=== PATIENT | female | born 1960 ===

== ENCOUNTER 2018-06-23 09:34 | Emergency (ER) | payer BC ==
[2018-06-23 09:44] VITALS: BP 118/84
[2018-06-23] MEDS ORDERED: DECADRON IM ONE (10:50)
--- NOTE | 2018-06-23 10:50 | Emergency Department Report ---
Minor Respiratory - HPI Chief Complaint: Earache Stated Complaint: PAIN LFT EAR/ HEAD PAIN Time Seen by Provider: 06/23/18 10:48 Duration: 5 Days Pain Location: Facial, Throat, Nose, Ear Severity: mild Minor Respiratory: Yes Sore Throat, Yes Able to Tolerate Fluids, Yes Ear Pain, No Rhinorrhea, No Cough, No Sick Contacts, No Hemoptysis, No Chest Pain, No Shortness of Breath, No Fever Other History: Patient is a 57-year-old female who comes to the ER complaining of ear pain, sore throat especially at night, and headache. Especially involving the left side of her face. Patient is nontoxic and ambulatory. she does not have a primary care doctor so she is tolerated this for some time but today the pain is so severe in the left ear she's come to the ER ED Review of Systems ROS: Stated complaint: PAIN LFT EAR/ HEAD PAIN Other details as noted in HPI Comment: All other systems reviewed and negative Constitutional: see HPI. denies: chills, fever Eyes: as per HPI, eye pain (behind l eye) ENT: as per HPI, ear pain (b), throat pain Respiratory: see HPI, cough (worse lying down) Cardiovascular: denies: chest pain Endocrine: denies: flushing Gastrointestinal: denies: nausea Genitourinary: denies: dysuria Musculoskeletal: denies: back pain Skin: denies: lesions Neurological: denies: weakness Psychiatric: denies: depression Hematological/Lymphatic: denies: easy bleeding ED Past Medical Hx - Past Medical History Previous Medical History?: No - Surgical History Past Surgical History?: Yes Additional Surgical History: cervical spine sx. bilateral rotator cuff repair. hysterectomy - Social History Smoking Status: Never Smoker Substance Use Type: None - Medications Home Medications: Home Medications Medication Instructions Recorded Confirmed Last Taken Type Amoxicillin 500 mg PO BID #20 capsule 06/23/18 Unknown Rx Fluticasone [Flonase] 1 spray NS QDAY #1 bottle 06/23/18 Unknown Rx predniSONE [Deltasone] 20 mg PO DAILY #5 tablet 06/23/18 Unknown Rx Minor Respiratory Exam - Exam General: Vital signs noted. No distress. Alert and acting appropriately. HEENT: Yes Pharyngeal Erythema, Yes Moist Mucous Membranes, Yes Frontal Tenderness, Yes Maxillary Tenderness, No Pharyngeal Exudates, No Rhinorrhea, No Conjuctival Injection Ear: Both TM Erythema, Both EAC Pain, Neither TM Bulge, Neither EAC Discharge Neck: Yes Supple, No Adenopathy Lungs: Yes Good Air Exchange, No Wheezes, No Ronchi, No Stridor, No Cough, No Labored Respirations, No Retractions, No Use of Accessory Muscles, No Other Abnormal Lung Sounds Heart: Yes Regular, No Murmur Abdomen: Yes Normal Bowel Sounds, No Tenderness, No Peritoneal Signs Skin: No Rash, No Edema Neurologic: Alert and oriented, no deficits. Musculoskeletal: Unremarkable. ED Course Vital Signs 06/23/18 09:41 Temperature 98.4 F Pulse Rate 84 Respiratory 20 Rate Blood Pressure 118/84 O2 Sat by Pulse 98 Oximetry ED Medical Decision Making - Medical Decision Making pos sinus tenderness ear pain- no wax pos erythema throat cough when flat no fever non toxic taking po medicated and dc home with poc - Differential Diagnosis urti ro impaction Critical care attestation.: If time is entered above; I have spent that time in minutes in the direct care of this critically ill patient, excluding procedure time. ED Disposition Clinical Impression: Sinusitis Disposition: DC-01 TO HOME OR SELFCARE Is pt being admited?: No Does the pt Need Aspirin: No Condition: Stable Instructions: Sinusitis (ED) Additional Instructions: meds as ordered follow up with pcp referral below drink a lot of water Prescriptions: Amoxicillin 500 mg PO BID #20 capsule Fluticasone [Flonase] 1 spray NS QDAY #1 bottle predniSONE [Deltasone] 20 mg PO DAILY #5 tablet Referrals: EMY GAMBOA MD [Primary Care Provider] - 3-5 Days FRANKLIN ORTIZ MD [Staff Physician] - 3-5 Days Time of Disposition: 10:49
== END 2018-06-23 12:00 | disposition home or self-care (01) ==
LOC: ED 09:34
DX: J32.0 Chronic maxillary sinusitis (principal); J32.1 Chronic frontal sinusitis; Z90.710 Acquired absence of both cervix and uterus
CPT/HCPCS: 96372; 99281; J1100

== ENCOUNTER 2018-07-16 09:17 | Outpatient (CLI) | payer BC ==
--- NOTE | 2018-07-16 11:17 | Mammography Report ---
Bilateral mammogram: No previous studies available. CAD study utilized. Findings: Predominance adipose tissue bilaterally. Focal asymmetry upper inner posterior left breast. No microcalcifications. Benign axillary nodes. Impression: Circumscribed mass upper inner posterior left breast. Recommend comparison with previous studies. If previous studies are not available spot compression and sonographic examination advised. BI-RADS CATEGORY: 0 = Needs additional imaging evaluation ACR BI-RADS MAMMOGRAPHIC CODES: 0 = Needs additional imaging evaluation; 1 = Negative; 2 = Benign; 3 = Probably benign; 4 = Suspicious; 5 = Malignant; 6 = Known biopsy-proven malignancy COMMENT: 1. Dense breast tissue, i.e., adenosis, fibrocystic changes, etc., may obscure an underlying neoplasm. 2. Approximately 10% of cancers are not detected with mammography. 3. A negative mammography report should not delay biopsy if a clinically suspicious mass is present. COMMENT: Patient follow-up letters are generated in [employer].
== END 2018-07-16 09:18 | disposition home or self-care (01) ==
LOC: MAMMO 09:17
PROVIDERS: ATTEND Internal Medicine
DX: Z12.31 Encounter for screening mammogram for malignant neoplasm of breast (principal); Z90.710 Acquired absence of both cervix and uterus
CPT/HCPCS: 77067